=== PATIENT | male | born 1990 | race Asian ===

== ENCOUNTER 2017-04-21 00:07 | Emergency (ER) | payer SELFPAY ==
[~2017-04-21] VITALS: Ht 167.6 cm; Wt 81.8 kg
[2017-04-21] MEDS ORDERED: IBUPROFEN 800 MG TABLET PO ONE (01:00)
[2017-04-21 02:29] VITALS: BP 147/88
== END 2017-04-21 02:32 | disposition home or self-care (01) ==
LOC: EMS 00:09
DX: S62.324A Displaced fracture of shaft of fourth metacarpal bone, right hand, initial encounter for closed fracture (principal); F12.90 Cannabis use, unspecified, uncomplicated; F17.210 Nicotine dependence, cigarettes, uncomplicated; Y04.0XXA Assault by unarmed brawl or fight, initial encounter; Y93.89 Activity, other specified; Y92.89 Other specified places as the place of occurrence of the external cause; Y99.8 Other external cause status
CPT/HCPCS: 99284